=== PATIENT | female | born 1995 | race Caucasian/White ===

== ENCOUNTER 2025-05-17 20:45 | Emergency (ER) | payer MEDICAID ==
[~2025-05-17] VITALS: Ht 157.5 cm; Wt 71.9 kg
[2025-05-17 20:49] VITALS: O2SAT 100
[2025-05-17 21:36] LABS: BASOPHILS % 0.3 % (0.0-2.0); EOSINOPHILS % 2.4 % (0.0-5.0); HEMATOCRIT. 38.4 % (36.0-48.0); HEMOGLOBIN. 12.7 g/dL (12.0-16.0); LYMPHOCYTES % 24.6 % (20.0-50.0); MEAN PLATELET VOLUME 9.0 fl (7.4-10.4); MONOCYTES % 7.3 % (2.0-8.0); NEUTROPHILS % 65.4 % (40.0-76.0); PLATELET 252 x1000/uL (130-400); RED BLOOD CELL COUNT 4.76 mill/uL (4.2-5.4); RED CELL DISTRIBUTION WIDTH 14.3 % (11.6-14.6)
[2025-05-17 21:48] LABS: CREATININE 0.9 mg/dL (0.6-1.0)
[2025-05-17 21:49] LABS: UREA NITROGEN BLOOD 8 mg/dL (9-23)
[2025-05-17 21:50] LABS: TROPONIN I HIGH SENSITIVITY < 4 ng/L (3.0-34)
[2025-05-17] MEDS ORDERED: ACETAMINOPHEN 325MG TABLET PO ONE (23:45)
[2025-05-17 23:50] VITALS: BP 102/64; PULSE 67; RESP 18; O2SAT 99
[2025-05-18 05:05] LABS: INFLUENZA TYPE A Presumptive Negative (Pres. Neg.)
[2025-05-18 05:06] LABS: INFLUENZA TYPE B Presumptive Negative (Pres. Neg.)
[2025-05-18 05:07] LABS: RESPIRATORY SYNCYTIAL VIRUS Not Detected (Not Detectd)
== END 2025-05-17 23:51 | disposition home or self-care (01) ==
LOC: ER 20:45
DX: M94.0 Chondrocostal junction syndrome [Tietze] (principal); Z20.822 Contact with and (suspected) exposure to COVID-19
CPT/HCPCS: 36415; 71045; 80048; 81025; 84484; 85025; 87420; 87426; 87804; 93005; 99285